=== PATIENT | female | born 1955 | race Caucasian/White ===

== ENCOUNTER 2017-04-18 21:55 | Inpatient (IN) | payer MEDICARE ==
[~2017-04-18] VITALS: Ht 157.4 cm; Wt 93.1 kg
[~2017-04-18 21:55] MED LIST: ALBUTEROL0.09 MG/A2 INH; AMLODIPINE BES2.5 MG PO; ASPIRIN EC325 MG PO; ASPIRIN FOR CHI81 MG PO; ASPIRIN81 M1 PO; BENADRYL25 MG PO; CELEXA20 MG; CITALOPRAM40 MG PO; CLINDAMYCIN HC300 MG PO; CLOPIDOGREL TAB 75M; COZAAR50 M1 PO; CYCLOBENZAPRINE5 M3 PO; EPIPEN 2-PAK1 MG/ML MR; FLAGYL500 MG PO; GABAPENTIN800 MG; HYDR25T PO; HYDROCHLOROTHIA25 MG; HYDROCODONE BIT1 T11 PO; IMDUR SA30 MG PO; ISOSORBIDE MONO30 MG PO; LISINOPRIL20 MG; LOPRESSOR25 MG PO; METFORMIN500 MG; METFORMIN500 MG PO; MYCELEX TROCHE10 MG MM; NITROSTAT0.4 MG; ONE-A-DAY WOMEN1 TAB PO; PHENERGAN25 M1 PO; PLAVIX75 M1 PO; PRAVASTATIN SOD40 MG PO; PROAIR HFA AER; PROAIR HFA0.09 MG/AC INH; SIMVASTATIN TAB 20M PO; SYNTHROID,LEVO25 MCG PO; TAGAMET200 MG PO; TRAMADOL HCL50 MG PO; VALIUM10 MG; VICODIN 5/500 505 MG PO; VICODIN 500 MG-1 TAB PO; VITAMIN D31000 IU PO; ZESTRIL,PRINIVIL5 MG PO; ZITHROMAX Z PA250 MG PO; [UNRECOGNIZED DRUG - REMARK]
[2017-04-18 22:04] VITALS: BP 230/141
[2017-04-18 22:41] LABS: BASO % 0.4 % (0.0-1.0); EOS # 0.3 10*3/uL (0.0-0.4); EOS % 2.7 % (1.0-4.0); HEMATOCRIT 43.2 % (37.0-47.0); HEMOGLOBIN 14.5 g/dl (12.0-16.0); IG # 0.1 10*3/uL (0.0-0.1); LYMPH % 21.4 % (27.0-41.0); MEAN CELL VOLUME 89.3 fl (81.0-99.0); MEAN CORPUSCULAR HGB CONC 33.6 g/dl (33.0-37.0); MEAN PLATELET VOLUME 9.7 fl (9.6-12.3); MONO # 0.7 10*3/uL (0.1-1.0); MONO % 7.7 % (3.0-9.0); NEUT # 6.1 10*3/uL (2.3-7.9); NEUT % 67.3 % (47.0-73.0); PLATELET COUNT AUTOMATED 297 10*3/uL (130-400); RED BLOOD COUNT 4.84 10*6/uL (4.10-5.10); RED CELL DISTRI WIDTH 12.3 % (0-14.5); WHITE BLOOD COUNT 9.1 10*3/uL (4.8-10.8)
[2017-04-18 22:45] VITALS: BP 184/98
[2017-04-18 23:03] LABS: ALBUMIN 3.7 gm/dl (3.1-4.5); ALKALINE PHOSPHATASE 120 U/L (45-117); BILIRUBIN, TOTAL 0.3 mg/dl (0.2-1.0); BUN 14 mg/dl (7-24); CARBON DIOXIDE 25 mmol/L (21-32); CHLORIDE 100 mmol/L (98-107); EST GLOM FILT AFRICAN AMERICAN > 60 ml/min; GLUCOSE 289 mg/dL (65-99); POTASSIUM 3.9 mmol/L (3.5-5.1); SGOT/AST 23 IU/L (3-35); SGPT/ALT 38 U/L (12-78); SODIUM 138 mmol/L (136-145); TOTAL PROTEIN 7.6 gm/dL (6.4-8.2)
[2017-04-18 23:06] LABS: TROPONIN I < 0.015 ng/ml (<0.045)
[2017-04-18 23:38] VITALS: BP 176/84; BP 186/84
[2017-04-19 00:48] VITALS: BP 176/84
[2017-04-19 01:23] VITALS: BP 166/89
[2017-04-19 02:11] VITALS: BP 158/108
== END 2017-04-19 02:37 | disposition left against medical advice (07) | DRG 305 ==
LOC: ED 21:55 → EDHOLD 04-19 00:15
PROVIDERS: Nurse Practitioner Family
DX: I16.1 Hypertensive emergency (principal); E11.9 Type 2 diabetes mellitus without complications; G43.909 Migraine, unspecified, not intractable, without status migrainosus; M19.90 Unspecified osteoarthritis, unspecified site; E78.2 Mixed hyperlipidemia; J45.909 Unspecified asthma, uncomplicated; Z53.21 Procedure and treatment not carried out due to patient leaving prior to being seen by health care provider; I25.10 Atherosclerotic heart disease of native coronary artery without angina pectoris; Z95.5 Presence of coronary angioplasty implant and graft; Z86.73 Personal history of transient ischemic attack (TIA), and cerebral infarction without residual deficits; Z90.49 Acquired absence of other specified parts of digestive tract; Z98.51 Tubal ligation status; Z98.1 Arthrodesis status; Z81.1 Family history of alcohol abuse and dependence; Z82.49 Family history of ischemic heart disease and other diseases of the circulatory system; Z83.3 Family history of diabetes mellitus; Z82.3 Family history of stroke; Z91.048 Other nonmedicinal substance allergy status; Z88.6 Allergy status to analgesic agent; Z88.0 Allergy status to penicillin; Z88.1 Allergy status to other antibiotic agents; Z88.8 Allergy status to other drugs, medicaments and biological substances; Z79.82 Long term (current) use of aspirin; Z79.84 Long term (current) use of oral hypoglycemic drugs; Z79.899 Other long term (current) drug therapy

== ENCOUNTER 2018-07-17 20:36 | Emergency (ER) | payer MEDICARE ==
[~2018-07-17] VITALS: Ht 157.4 cm; Wt 86.2 kg
[~2018-07-17 20:36] MED LIST changes: +ASPIRIN325 M2 PO; -ASPIRIN81 M1 PO; +COREG6.25 MG PO; +FISH OIL 1,0001 EAC6 PO; +GLUCOPHAGE1000 MG PO; +ISOSORBIDE DINI30 MG PO; +LIPITOR80 MG PO; +NATURE'S BLEND500 M1 PO; +VALERIAN ROOT500 MG PO; +VITAMIN B COMP1 EAC1 PO; +VITAMIN D PO; +[UNRECOGNIZED DRUG - OTHER] PO
== END 2018-07-17 22:40 | disposition home or self-care (01) ==
LOC: ED 20:36
DX: S30.0XXA Contusion of lower back and pelvis, initial encounter (principal); J45.909 Unspecified asthma, uncomplicated; I25.10 Atherosclerotic heart disease of native coronary artery without angina pectoris; E11.9 Type 2 diabetes mellitus without complications; E78.5 Hyperlipidemia, unspecified; G43.909 Migraine, unspecified, not intractable, without status migrainosus; Z90.49 Acquired absence of other specified parts of digestive tract; Z88.5 Allergy status to narcotic agent; Z88.0 Allergy status to penicillin; Z88.1 Allergy status to other antibiotic agents; Z88.8 Allergy status to other drugs, medicaments and biological substances; Z79.82 Long term (current) use of aspirin; Z79.84 Long term (current) use of oral hypoglycemic drugs; Z79.899 Other long term (current) drug therapy; Z98.51 Tubal ligation status; W22.8XXA Striking against or struck by other objects, initial encounter; Y93.89 Activity, other specified; Y92.89 Other specified places as the place of occurrence of the external cause; Y99.8 Other external cause status

== ENCOUNTER 2019-05-01 21:19 | Emergency (ER) | payer MEDICARE ==
[~2019-05-01] VITALS: Ht 160 cm; Wt 89.6 kg
--- NOTE | ~2019-05-01 | EKG ---
[place], [place] ELECTROCARDIOGRAM REPORT NAME: DAVID HOUSE UNIT #: [id number] ROOM: DOCTOR: EPIPHANY DRAFT REPORT BIRTHDATE: [birth year] [facility] Test Date: 2019-05-01 Test Time: 21:58:24 Pat Name: DAVID HOUSE Department: Room: Gender: F Crotch Breaker: : 1955 Requested By: KLAUS HANKINS Order Number: [id number] Reading MD: Arslan Lopez MD Measurements Intervals [place] Rate: 75 P: [place]: QRS: 53 QRSD: 96 T: 55 QT: 461 QTc: 515 Interpretive Statements Atrial fibrillation Probable LVH with secondary repol abnrm Prolonged QT interval Electronically Signed On 05-02-2019 8:23:17 PDT by Arslan Lopez MD CM:EKGRPT:ELECTROCARDIOGRAM REPORT [id number] KLAUS BEE DRAFT REPORT KLAUS HANKINS DO
[~2019-05-01 21:19] MED LIST changes: +CEFUROXIME AXE500 MG PO; +TAMIFLU 75MG CA75 MG PO
[2019-05-01 22:12] LABS: BASO % 0.5 % (0.0-1.0); EOS # 0.3 10*3/uL (0.0-0.4); EOS % 3.7 % (1.0-4.0); HEMATOCRIT 44.1 % (37.0-47.0); HEMOGLOBIN 14.1 g/dl (12.0-16.0); LYMPH # 2.1 10*3/uL (1.3-4.4); LYMPH % 27.2 % (27.0-41.0); MEAN CELL VOLUME 91.9 fl (81.0-99.0); MEAN CORPUSCULAR HGB 29.4 pg (27.0-31.0); MEAN PLATELET VOLUME 9.4 fl (9.6-12.3); MONO # 0.8 10*3/uL (0.1-1.0); MONO % 9.7 % (3.0-9.0); NEUT # 4.6 10*3/uL (2.3-7.9); NEUT % 58.6 % (47.0-73.0); PLATELET COUNT AUTOMATED 331 10*3/uL (130-400); RED CELL DISTRI WIDTH 12.5 % (0-14.5); WHITE BLOOD COUNT 7.8 10*3/uL (4.8-10.8)
[2019-05-01 22:28] LABS: ALBUMIN 3.4 gm/dl (3.1-4.5); ALKALINE PHOSPHATASE 127 U/L (45-117); BUN 11 mg/dl (7-24); CHLORIDE 104 mmol/L (98-107); CREATININE 1.25 mg/dL (0.55-1.02); LIPASE 81 U/L (73-393); POTASSIUM 3.9 mmol/L (3.5-5.1); SGOT/AST 26 IU/L (3-35); SGPT/ALT 41 U/L (12-78); SODIUM 137 mmol/L (136-145); TOTAL PROTEIN 7.8 gm/dL (6.4-8.2)
[2019-05-01 22:30] LABS: TROPONIN I < 0.015 ng/ml (<0.045)
[2019-05-01 22:44] LABS: ACT PARTIAL THROMBO TIME 26.4 SECONDS (20.0-32.1); INTERNATIONAL NORM RATIO 0.9 (2.0-3.5)
[2019-05-01 23:06] LABS: BILIRUBIN NEGATIVE (NEGATIVE); BLOOD NEGATIVE (NEGATIVE); CLARITY CLEAR (CLEAR); COLOR YELLOW (YELLOW); GLUCOSE 1+ (NEGATIVE); KETONE NEGATIVE (NEGATIVE); LEUKO ESTERASE NEGATIVE (NEGATIVE); NITRITE NEGATIVE (NEGATIVE); PH 6.5 (5.0-9.0); SPECIFIC GRAVITY <= 1.005 (1.005-1.030); UROBILINOGEN 0.2 E.U./dl (0.2-1.0)
[2019-05-01 23:12] LABS: EPITHELIAL CELLS 30-35
[2019-05-01 23:13] LABS: BACTERIA TRACE; RBC 0-2 rbc/hpf (0-2)
== END 2019-05-01 23:57 | disposition home or self-care (01) ==
LOC: ED 21:19
PROVIDERS: Student in an Organized Health Care Education/Training Program
DX: E11.649 Type 2 diabetes mellitus with hypoglycemia without coma (principal); J45.909 Unspecified asthma, uncomplicated; I25.10 Atherosclerotic heart disease of native coronary artery without angina pectoris; E78.2 Mixed hyperlipidemia; I10 Essential (primary) hypertension; G43.909 Migraine, unspecified, not intractable, without status migrainosus; M19.90 Unspecified osteoarthritis, unspecified site; Z86.73 Personal history of transient ischemic attack (TIA), and cerebral infarction without residual deficits; Z79.82 Long term (current) use of aspirin; Z79.899 Other long term (current) drug therapy; Z88.5 Allergy status to narcotic agent; Z88.6 Allergy status to analgesic agent; Z88.0 Allergy status to penicillin

== ENCOUNTER 2019-08-04 11:57 | Inpatient (IN) | payer MEDICARE ==
[~2019-08-04] VITALS: Ht 177.8 cm; Wt 81.4 kg
[2019-08-04 11:59] VITALS: BP 177/93
[2019-08-04 12:15] LABS: BASO % 0.7 % (0.0-1.0); EOS # 0.2 10*3/uL (0.0-0.4); HEMATOCRIT 42.8 % (37.0-47.0); HEMOGLOBIN 14.1 g/dl (12.0-16.0); LYMPH # 1.4 10*3/uL (1.3-4.4); LYMPH % 23.8 % (27.0-41.0); MEAN CELL VOLUME 90.5 fl (81.0-99.0); MEAN CORPUSCULAR HGB 29.8 pg (27.0-31.0); MEAN CORPUSCULAR HGB CONC 32.9 g/dl (33.0-37.0); MEAN PLATELET VOLUME 9.7 fl (9.6-12.3); MONO # 0.6 10*3/uL (0.1-1.0); MONO % 9.7 % (3.0-9.0); NEUT # 3.7 10*3/uL (2.3-7.9); NEUT % 61.5 % (47.0-73.0); PLATELET COUNT AUTOMATED 295 10*3/uL (130-400); RED BLOOD COUNT 4.73 10*6/uL (4.10-5.10); RED CELL DISTRI WIDTH 12.3 % (0-14.5)
[2019-08-04 12:27] LABS: ACT PARTIAL THROMBO TIME 26.9 SECONDS (20.0-32.1); INTERNATIONAL NORM RATIO 0.9 (2.0-3.5)
[2019-08-04 12:37] VITALS: BP 174/101
[2019-08-04 12:41] LABS: ALBUMIN 3.4 gm/dl (3.1-4.5); ALKALINE PHOSPHATASE 129 U/L (45-117); BUN 13 mg/dl (7-24); CHLORIDE 101 mmol/L (98-107); CREATININE 0.99 mg/dL (0.55-1.02); POTASSIUM 3.7 mmol/L (3.5-5.1); SGOT/AST 11 IU/L (3-35); SGPT/ALT 25 U/L (12-78); SODIUM 134 mmol/L (136-145); TOTAL PROTEIN 7.5 gm/dL (6.4-8.2)
[2019-08-04 12:44] LABS: TROPONIN I < 0.015 ng/ml (<0.045)
[2019-08-04 13:12] VITALS: BP 165/92
--- NOTE | 2019-08-04 13:12 | NUR ---
RESTING IN BED EATING ICE CHIPS. PT TELLS ME MORPHINE EFFECTIVE, "PAIN COMES AND GOES".
[2019-08-04 14:15] VITALS: BP 168/92; BP 174/92
--- NOTE | 2019-08-04 14:15 | NUR ---
A 64, admitted to 5E, under the services of VI Covarrubias DO with a diagnosis of chest pain with high risk for cardiac etiology. Chief complaint is chest pain. Patient arrived via stretcher from ER. Monitor applied. Initial assessment completed. Vital signs taken and recorded. VI COVARRUBIAS DO notified of admission to the unit. Orders received. See assessment for past medical history, medications and allergies. Patient and/or family oriented to unit. [address] visitation policy reviewed. Clothing/patient valuable form completed. LOYDA ALMONTE
--- NOTE | 2019-08-04 14:33 | NUR ---
Called patients home pharmacy for updated med list. Pharmacist to fax.
[2019-08-04 16:00] VITALS: BP 148/94
[2019-08-04] MEDS ORDERED: RANOLAZINE ER500 MG PO (16:10)
--- NOTE | 2019-08-04 17:15 | NUR ---
Dr. Ghotra was medication technician this weekend. Spoke with him regarding consult for chest pain. Reviewed patients history with . Per physician have nurse call Dr. Kurtz at 0600 08-05-19 with consult information.
--- NOTE | 2019-08-04 17:16 | NUR ---
Notified Dr. Amaya of patients updated med rec completion. See new orders.
[2019-08-04 20:00] VITALS: BP 144/82
--- NOTE | 2019-08-04 21:25 | NUR ---
SPOKE TO DR HAGEN REGARDING PT REQUEST FOR IBUPROFEN FOR C/O H/A. T.O. TAKEN FOR 600 MG NOW.
--- NOTE | 2019-08-04 21:35 | NUR ---
ONE TIME DOSE OF IBUPROFEN ADMINISTERED PRESCRIBED FOR PT C/O ANDERSON RATED AN 8/10. WILL CONTINUE TO MONITOR AND REASSESS. NO OTHER COMPLAINTS AT THIS TIME. CALL LIGHT IN REACH.
--- NOTE | 2019-08-04 22:21 | NUR ---
PT STATES SHE RECEIVED SOME RELIEF FROM IBUPROFEN. STATES THAT THE HEADACHE IS FROM THE NITRO SHE RECEIVED EARLIER TODAY. NO COMPLAINTS OF CP AT THIS TIME. WILL CONTINUE TO MONITOR.
[2019-08-05] VITALS: BP 140/82
--- NOTE | 2019-08-05 06:00 | NUR ---
SPOKE WITH DR SUGGS. STATED TO CALL DR ARGUELLO TO SEE IF HE'S ABLE TO DO A STRESS TEST TODAY AND IF NOT TO SCHEDULE WITH HIM TOMORROW AM.
--- NOTE | 2019-08-05 06:10 | NUR ---
DR ARGUELLO IS ABLE TO DO THE STRESS TEST TODAY AT 1030. ORDERS ARE IN. PT WAS MADE AWARE.
[2019-08-05 06:48] LABS: BASO % 0.5 % (0.0-1.0); EOS # 0.3 10*3/uL (0.0-0.4); HEMATOCRIT 41.6 % (37.0-47.0); HEMOGLOBIN 13.8 g/dl (12.0-16.0); LYMPH # 2.3 10*3/uL (1.3-4.4); LYMPH % 36.3 % (27.0-41.0); MEAN CELL VOLUME 89.8 fl (81.0-99.0); MEAN CORPUSCULAR HGB 29.8 pg (27.0-31.0); MEAN CORPUSCULAR HGB CONC 33.2 g/dl (33.0-37.0); MEAN PLATELET VOLUME 9.5 fl (9.6-12.3); MONO # 0.6 10*3/uL (0.1-1.0); MONO % 8.9 % (3.0-9.0); NEUT # 3.1 10*3/uL (2.3-7.9); PLATELET COUNT AUTOMATED 289 10*3/uL (130-400); RED BLOOD COUNT 4.63 10*6/uL (4.10-5.10); RED CELL DISTRI WIDTH 12.5 % (0-14.5); WHITE BLOOD COUNT 6.4 10*3/uL (4.8-10.8)
[2019-08-05 07:19] LABS: ALBUMIN 3.1 gm/dl (3.1-4.5); ALKALINE PHOSPHATASE 101 U/L (45-117); BUN 13 mg/dl (7-24); CHLORIDE 106 mmol/L (98-107); CHOLESTEROL 276 mg/dL (<200); CREATININE 0.82 mg/dL (0.55-1.02); POTASSIUM 3.8 mmol/L (3.5-5.1); SGOT/AST 14 IU/L (3-35); SGPT/ALT 21 U/L (12-78); SODIUM 138 mmol/L (136-145); TOTAL PROTEIN 6.6 gm/dL (6.4-8.2); TRIGLYCERIDES 206 mg/dl (<150); VLDL CHOLESTEROL 41 mg/dL (6-40)
[2019-08-05 07:27] LABS: HDL CHOLESTEROL 36 mg/dl (40-60); LDL CHOLESTEROL 199 mg/dL (9-159); PHOSPHOROUS 3.8 mg/dL (2.5-4.9)
--- NOTE | 2019-08-05 09:13 | NUR ---
1000 AM MEDS WILL BE GIVEN AT A LATER TIME, PT NPO FOR STRESS TEST
--- NOTE | 2019-08-05 10:39 | NUR ---
INFORMED CONSENT SIGNED FOR LEXISCAN STRESS TEST WITH DR. ARGUELLO. RESTING EKG NSR HR 65, BP 164/90. COMPLETED ONE MINUTE OF LEXISCAN PROTOCOL RECEIVING LEXISCAN 0.4MG OVER 10 SECONDS. NO ARRHYTHMIAS NOTED. ST DEPRESSION PRESENT. PT C/O HEADACHE, NAUSEA, AND CHEST TIGHTNESS. DR. ARGUELLO REVIEWED STRIP WITH PT AND INFORMED HER THAT SHE WOULD PROBABLY NEED A HEART CATHERAZATION D/T ABNORMAL TEST. LAST RECOVERY HR 90, BP 160/92. PT CONTINOUS TO HAVE CHEST TIGHTNESS BUT STATES THAT IS NORMAL FOR HER AFTER LEXISCAN. OFFERED TO CONTACT DR. ARGUELLO CONCERNING GETTING AN ORDER FOR AMINOPHYLLINE AND/OR NITRO. PT REFUSED. STATES IT IS THE BEST I'VE EVER FELT WITH STRESS TEST. WAITING NUCLEAR SCANNING IN STABLE CONDITION.
[2019-08-05 12:00] VITALS: BP 158/88
[2019-08-05] MEDS ORDERED: VITAMIN D32000 UNI1 PO (14:20)
[2019-08-05 16:00] VITALS: BP 186/76
--- NOTE | 2019-08-05 16:37 | NUR ---
DULCOLAX GIVEN PER REQUEST FOR C/O CONSTIPATION. WILL MONITOR.
--- NOTE | 2019-08-05 16:46 | NUR ---
Machine Puller And Laster in to talk to patient. Patient states lives at HOME with . There are NO steps in the home. Physician: NONE Pharmacy: [facility] Home health services: NONE Patient's level of ADLs: INDEPENDENT Patient has working utilities: YES DME: [facility] Follow-up physician's appointment after d/c: WILL BE MADE BY HOSPITALIST NURSE DIRECTOR ON DISCHARGE Does patient want to access PORTAL?: NO Discharge plan PT STATES SHE LIVES WITH HER AND IS INDEPENDENT IN HER CARE. STATES SHE SOMETIMES HAS TO USE A WALKER TO GET AROUND. PT ALSO STATES THEY TOLD HER SHE WAS BEING TRANSFERRED TO [place] [facility]ITHER [facility] OR IN THE AM. PT STATES SHE HAS BEEN HAVING TROUBLE GETTING MEDICATIONS. STATES THEY TOLD HERE ABOUT GETTING PERSCRIPTIONS HERE AND FOLLOWING UP WITH [facility]. STATES THAT IS WHAT SHE IS GOING TO DO. WILL CONTINUE TO FOLLOW. WILL HAVE A RIDE HOME IF DISCHARGE FROM HERE.. EKTA QUINTANILLA
[2019-08-05 20:00] VITALS: BP 158/90
--- NOTE | 2019-08-05 22:45 | NUR ---
PT MEDICATED WITH ZOFRAN PER ORDER FOR COMPLAINT OF NAUSEA. PT ALSO MEDICATED WITH MORPHINE PER ORDER FOR COMPLAINT OF 10/10 BACK PAIN. WILL CONTINUE TO MONITOR AND REASSESS.
[2019-08-06] VITALS: BP 130/75
--- NOTE | 2019-08-06 | NUR ---
PER PT, MORPHINE EFFECTIVE FOR PAIN. ZOFRAN EFFECTIVE FOR NAUSEA.
--- NOTE | 2019-08-06 06:21 | NUR ---
CALLED [facility] TO VERIFY PT HEART CATH. [facility] STATED THAT THEY WERE NOT MADE AWARE OF PT FOR HEART CATH THIS MORNING. CALLED AND LEFT MESSAGE WITH DR. SUGGS'S OFFICE FOR CLARIFICATION.
--- NOTE | 2019-08-06 06:38 | NUR ---
DR. SUGGS RETURNED PHONE CALL. STATED THAT PT DID NOT NEED TO HAVE HEART CATH THIS AM. STATES HER STRESS WAS NORMAL AND WOULD BE IN TO SEE PATIENT.
--- NOTE | 2019-08-06 06:40 | NUR ---
DR. MARTINEZ NOTIFIED OF DR. SUGGS STATING HEART CATH NOT NEEDED FOR PT. ORDERED TO RESUME DIET NORMAL PER PT REQUEST.
--- NOTE | 2019-08-06 07:20 | NUR ---
PT CAME TO DESK VERY UPSET AND SHOUTING SHE WANTS TO LEAVE AMA. DR. JOE WAS IN WITH PT PRIOR TO THIS. DR. JOE EXPLAINED TO PT HE WAS GOING TO GET HER TRANSFERRED AND TOLD HER HE CHANGED HIS SCHEDULE TO DO HEART CATH AT NOON TODAY. PT WAS YELLING AND TELLING HIM TO GET OUT OF ROOM. SHE DIDN'T WANT HIM TO DO IT. WE SPOKE WITH PT AND CALMED HER DOWN. AND SHE AGREED TO TALK WITH HOSPITALIST AND PT REQUESTING A NEW MOTEL OPERATOR. DR. SCHAEFER AWARE AND SPOKE WITH PT.
--- NOTE | 2019-08-06 08:15 | NUR ---
DR. IBRAHIM WAS GOING TO READ THE REPORT AND SEE PT. THEN CONNIE FROM [facility] WAS UP TO [facility] TO SEE PT AND SHE IS AGREEING FOR DR. ARGUELLO TO DO HEART CATH AT THIS TIME AGAIN. DR. JOE AWARE PT WANTS SAUNDRA TO DO IT AND NOT HIM. DR. JOE NOTIFIED SAUNDRA.
--- NOTE | 2019-08-06 08:18 | NUR ---
DR. IBRAHIM OFFICE CALLED AND AWARE WE WAS CANCELLING CONSULT. HE WAS ON THE FLOOR AND KNOWS.
--- NOTE | 2019-08-06 09:30 | NUR ---
[facility] CALLED AND WILL LET US KNOW IF THERE IS A BED.
--- NOTE | 2019-08-06 10:59 | NUR ---
PER MITCHELL AT [facility] TOLD THEM NO THEY ARE NOT TAKING ANY TRANSFERS IN.
--- NOTE | 2019-08-06 11:15 | NUR ---
LET BODY CARE MANAGER AND DIRECTOR KNOW AND DR. SCHAEFER IS AWARE.
[2019-08-06 12:00] VITALS: BP 155/76
--- NOTE | 2019-08-06 12:09 | NUR ---
RESTING IN BED. RESP-EASY AND REGULAR. NO C/O AT THIS TIME. CALL LIGHT IN REACH.
--- NOTE | 2019-08-06 12:25 | NUR ---
DR. SCHAEFER MADE AWARE PT AGREES TO GO TO COUNT INCLUDES THE [facility].
--- NOTE | 2019-08-06 14:14 | NUR ---
PT IS FOR POSSIBLE TRANSFER TO ANOTHER FACILITY. WILL CONTINUE TO FOLLOW.
--- NOTE | 2019-08-06 15:02 | NUR ---
SPOKE WITH EDI AT [facility]. GAVE REPORT.
--- NOTE | 2019-08-06 15:03 | NUR ---
Discharge instructions reviewed with patient/AMBULANCE. Patient receptive and verbalizes understanding. Follow-up care arranged. Written instructions given to patient/AMBULANCE. 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 BEATA ELDER
--- NOTE | 2019-08-06 15:08 | NUR ---
CALLED DR. ARGUELLO AWARE PT BEING TRANSFERRED TO [facility]. HE WANTS HER TO KNOW HE HAS BEEN TRYING TO GET HER TO [facility] AND THAT HE SPOKE WITH ADMINISTRATION. MADE PT AWARE.
--- NOTE | 2019-08-06 15:43 | NUR ---
PT ESCORTED VIA [place] FOR DISCHARGE TO [facility], PACKET GIVEN TO LOCKSTITCH BACK MAKER.
== END 2019-08-06 15:43 | disposition short-term general hospital (02) | DRG 281 ==
LOC: ED 11:57 → EDHOLD 12:53 → 5E 12:53
PROVIDERS: Emergency Medicine; Family Medicine; ADMIT Family Medicine
PROC: 3E073KZ Introduction of Other Diagnostic Substance into Coronary Artery, Percutaneous Approach (ICD-10-PCS; principal; 2019-08-05)
PROC: 4A02XM4 Measurement of Cardiac Total Activity, External Approach (ICD-10-PCS; principal; 2019-08-05)
DX: I21.A1 Myocardial infarction type 2 (principal); E87.1 Hypo-osmolality and hyponatremia; I16.0 Hypertensive urgency; I25.10 Atherosclerotic heart disease of native coronary artery without angina pectoris; J45.909 Unspecified asthma, uncomplicated; E78.2 Mixed hyperlipidemia; G43.909 Migraine, unspecified, not intractable, without status migrainosus; I10 Essential (primary) hypertension; E11.65 Type 2 diabetes mellitus with hyperglycemia; R74.8 Abnormal levels of other serum enzymes; E55.9 Vitamin D deficiency, unspecified; E66.01 Morbid (severe) obesity due to excess calories; M19.90 Unspecified osteoarthritis, unspecified site; Z86.73 Personal history of transient ischemic attack (TIA), and cerebral infarction without residual deficits; Z90.49 Acquired absence of other specified parts of digestive tract; Z98.51 Tubal ligation status; Z82.49 Family history of ischemic heart disease and other diseases of the circulatory system; Z83.3 Family history of diabetes mellitus; Z95.5 Presence of coronary angioplasty implant and graft; Z88.8 Allergy status to other drugs, medicaments and biological substances; Z91.048 Other nonmedicinal substance allergy status; Z79.899 Other long term (current) drug therapy; Z79.82 Long term (current) use of aspirin; Z79.84 Long term (current) use of oral hypoglycemic drugs; Z81.1 Family history of alcohol abuse and dependence; Z82.3 Family history of stroke; Z98.1 Arthrodesis status; Z68.25 Body mass index [BMI] 25.0-25.9, adult

== ENCOUNTER → 2020-01-02 | Outpatient (CLI) | payer MEDICARE ==
[~2020-01-02] MED LIST changes: +RANOLAZINE ER500 MG PO; +VITAMIN D32000 UNI1 PO
== END | disposition home or self-care (01) ==
LOC: RESCLI 00:59
DX: I10 Essential (primary) hypertension (principal); E11.9 Type 2 diabetes mellitus without complications; E78.5 Hyperlipidemia, unspecified; F32.9 Major depressive disorder, single episode, unspecified; I25.10 Atherosclerotic heart disease of native coronary artery without angina pectoris; I67.9 Cerebrovascular disease, unspecified; L40.9 Psoriasis, unspecified; R93.89 Abnormal findings on diagnostic imaging of other specified body structures; Z79.899 Other long term (current) drug therapy; Z90.49 Acquired absence of other specified parts of digestive tract; Z88.0 Allergy status to penicillin; Z88.8 Allergy status to other drugs, medicaments and biological substances

== ENCOUNTER → 2020-01-06 | Outpatient (CLI) | payer MEDICARE ==
[2020-01-06 08:39] LABS: BASO # 0.1 10*3/uL (0.0-0.1); BASO % 0.6 % (0.0-1.0); EOS # 0.3 10*3/uL (0.0-0.4); EOS % 3.8 % (1.0-4.0); HEMATOCRIT 50.1 % (37.0-47.0); HEMOGLOBIN 16.5 g/dl (12.0-16.0); LYMPH # 2.4 10*3/uL (1.3-4.4); MEAN CELL VOLUME 86.8 fl (81.0-99.0); MEAN CORPUSCULAR HGB 28.6 pg (27.0-31.0); MEAN CORPUSCULAR HGB CONC 32.9 g/dl (33.0-37.0); MEAN PLATELET VOLUME 9.2 fl (9.6-12.3); MONO # 0.7 10*3/uL (0.1-1.0); MONO % 8.4 % (3.0-9.0); NEUT # 4.4 10*3/uL (2.3-7.9); NEUT % 55.8 % (47.0-73.0); PLATELET COUNT AUTOMATED 394 10*3/uL (130-400); RED BLOOD COUNT 5.77 10*6/uL (4.10-5.10); RED CELL DISTRI WIDTH 12.2 % (0-14.5); WHITE BLOOD COUNT 7.8 10*3/uL (4.8-10.8)
[2020-01-06 09:13] LABS: ALBUMIN 3.9 gm/dl (3.1-4.5); POTASSIUM 3.9 mmol/L (3.5-5.1)
[2020-01-06 09:16] LABS: CREATININE 1.22 mg/dL (0.55-1.02); TOTAL PROTEIN 8.7 gm/dL (6.4-8.2)
== END | disposition home or self-care (01) ==
LOC: LAB 08:19
PROVIDERS: Internal Medicine
DX: E11.9 Type 2 diabetes mellitus without complications (principal)

== ENCOUNTER → 2020-01-09 | Outpatient (CLI) | payer MEDICARE ==
[2020-01-09 13:36] LABS: ALBUMIN 3.8 gm/dl (3.1-4.5); ALKALINE PHOSPHATASE 122 U/L (45-117); BUN 14 mg/dl (7-24); CHLORIDE 98 mmol/L (98-107); CREATININE 1.02 mg/dL (0.55-1.02); POTASSIUM 3.7 mmol/L (3.5-5.1); SGOT/AST 15 IU/L (3-35); SGPT/ALT 29 U/L (12-78); SODIUM 134 mmol/L (136-145); TOTAL PROTEIN 8.1 gm/dL (6.4-8.2)
[2020-01-09 13:37] LABS: BACTERIA 2+; BILIRUBIN NEGATIVE (NEGATIVE); BLOOD NEGATIVE (NEGATIVE); CLARITY SL CLOUDY (CLEAR); COLOR YELLOW (YELLOW); EPITHELIAL CELLS 20-25; GLUCOSE 1+ (NEGATIVE); KETONE NEGATIVE (NEGATIVE); LEUKO ESTERASE 1+ (NEGATIVE); MUCOUS 1+; NITRITE NEGATIVE (NEGATIVE); SPECIFIC GRAVITY 1.015 (1.005-1.030); UROBILINOGEN 0.2 E.U./dl (0.2-1.0)
== END | disposition home or self-care (01) ==
LOC: RESCLI 00:36
PROVIDERS: Internal Medicine
DX: R55 Syncope and collapse (principal); R42 Dizziness and giddiness; E11.9 Type 2 diabetes mellitus without complications; F32.9 Major depressive disorder, single episode, unspecified; I25.10 Atherosclerotic heart disease of native coronary artery without angina pectoris; E78.5 Hyperlipidemia, unspecified

== ENCOUNTER → 2020-04-08 | Outpatient (CLI) | payer MEDICARE ==
[~2020-04-08] MED LIST changes: +BIOTIN10000 MC1 PO; +LOSARTAN-HCTZ1 EAC1 PO; +METFORMIN HCL1000 M1 PO; +SIMVASTATIN40 MG PO
--- NOTE | 2020-04-08 09:15 | NUR ---
INFORMED CONSENT OBTAINED FOR LEXISCAN NUCLEAR STRESS TEST WITH DR. GOLDSTEIN. RESTING EKG NSR WITH A RESTING HR OF 79 WITH BP OF 124/72. LUNGS CLEAR WITH SPO2 OF 99% ON ROOM AIR. PT COMPLETED A 1:00 LEXISCAN PROTOCOL RECEIVING LEXISCAN 0.4 MG IV OVER 10 SECONDS. DID C/O ABDOMINAL "CRAMPING, NAUSEA, DIZZINESS AND CHEST TIGHTNESS" THAT WAS RELIEVED IN RECOVERY. HAD ST DEPRESSION IN LEADS II,III,AVF AND V5-V6. HAD A PEAK HR OF 104 WITH BP OF 108/44. LAST RECOVERY HR OF 95 WITH BP OF 120/50. AWAITING SCANNING IN STABLE CONDITION.
== END | disposition home or self-care (01) ==
LOC: CARD 00:05
DX: I25.119 Atherosclerotic heart disease of native coronary artery with unspecified angina pectoris (principal); R07.9 Chest pain, unspecified; R73.03 Prediabetes; R53.81 Other malaise

== ENCOUNTER → 2020-05-04 | Outpatient (CLI) | payer MEDICARE ==
[2020-05-04 16:46] LABS: VITAMIN D, 25-HYDROXY 13.3 ng/mL (30-100)
[2020-05-05 11:18] LABS: CREATININE 1.05 mg/dL (0.55-1.02)
== END | disposition home or self-care (01) ==
LOC: RESCLI 00:47
PROVIDERS: Internal Medicine
DX: E11.9 Type 2 diabetes mellitus without complications (principal); F32.9 Major depressive disorder, single episode, unspecified; I25.119 Atherosclerotic heart disease of native coronary artery with unspecified angina pectoris; E78.5 Hyperlipidemia, unspecified; G62.9 Polyneuropathy, unspecified; J44.9 Chronic obstructive pulmonary disease, unspecified; E55.9 Vitamin D deficiency, unspecified; Z90.49 Acquired absence of other specified parts of digestive tract; Z95.828 Presence of other vascular implants and grafts; Z98.51 Tubal ligation status; Z98.890 Other specified postprocedural states; Z79.84 Long term (current) use of oral hypoglycemic drugs; Z79.899 Other long term (current) drug therapy; Z88.8 Allergy status to other drugs, medicaments and biological substances

== ENCOUNTER → 2020-09-15 | Outpatient (CLI) | payer MEDICARE ==
[2020-09-15 15:42] LABS: BASO % 0.5 % (0.0-1.0); EOS # 0.3 10*3/uL (0.0-0.4); EOS % 3.3 % (1.0-4.0); HEMATOCRIT 40.9 % (37.0-47.0); LYMPH # 1.4 10*3/uL (1.3-4.4); LYMPH % 17.8 % (27.0-41.0); MEAN CELL VOLUME 87.6 fl (81.0-99.0); MEAN CORPUSCULAR HGB 29.3 pg (27.0-31.0); MEAN CORPUSCULAR HGB CONC 33.5 g/dl (33.0-37.0); MEAN PLATELET VOLUME 9.9 fl (9.6-12.3); MONO # 0.6 10*3/uL (0.1-1.0); MONO % 7.7 % (3.0-9.0); NEUT # 5.7 10*3/uL (2.3-7.9); NEUT % 70.3 % (47.0-73.0); PLATELET COUNT AUTOMATED 313 10*3/uL (130-400); RED BLOOD COUNT 4.67 10*6/uL (4.10-5.10); RED CELL DISTRI WIDTH 12.3 % (0-14.5); WHITE BLOOD COUNT 8.1 10*3/uL (4.8-10.8)
[2020-09-15 16:13] LABS: ALBUMIN 3.6 gm/dl (3.1-4.5); BUN 15 mg/dl (7-24); CHLORIDE 99 mmol/L (98-107); CHOLESTEROL 200 mg/dL (<200); CREATININE 1.07 mg/dL (0.55-1.02); POTASSIUM 4.1 mmol/L (3.5-5.1); SGOT/AST 10 IU/L (3-35); SGPT/ALT 19 U/L (12-78); SODIUM 138 mmol/L (136-145); TRIGLYCERIDES 184 mg/dl (<150); VLDL CHOLESTEROL 37 mg/dL (6-40)
[2020-09-15 16:19] LABS: ALKALINE PHOSPHATASE 102 U/L (45-117); FREE T4 0.98 ng/dl (0.76-1.46); HDL CHOLESTEROL 46 mg/dl (40-60); LDL CHOLESTEROL 117 mg/dL (9-159)
[2020-09-16 11:11] LABS: CREATININE,URINE 165.4 mg/dL (Not Estab.)
== END | disposition home or self-care (01) ==
LOC: RESCLI 02:25
PROVIDERS: Internal Medicine; ATTEND Internal Medicine
DX: R41.89 Other symptoms and signs involving cognitive functions and awareness (principal); E11.9 Type 2 diabetes mellitus without complications; E78.5 Hyperlipidemia, unspecified; I25.10 Atherosclerotic heart disease of native coronary artery without angina pectoris

== ENCOUNTER 2020-10-02 11:10 | Emergency (ER) | payer MEDICARE ==
[~2020-10-02] VITALS: Ht 157.4 cm; Wt 86.2 kg
== END 2020-10-02 13:43 | disposition home or self-care (01) ==
LOC: ED 11:10
DX: S46.911A Strain of unspecified muscle, fascia and tendon at shoulder and upper arm level, right arm, initial encounter (principal); Z88.8 Allergy status to other drugs, medicaments and biological substances; Z79.82 Long term (current) use of aspirin; Z79.899 Other long term (current) drug therapy; X58.XXXA Exposure to other specified factors, initial encounter; Y93.89 Activity, other specified; Y92.89 Other specified places as the place of occurrence of the external cause; Y99.8 Other external cause status

== ENCOUNTER → 2020-12-01 | Outpatient (CLI) | payer MEDICARE ==
[~2020-12-01] MED LIST changes: +LEVETIRACETAM750 MG PO; +MECLIZINE HCL25 M2 PO
== END | disposition home or self-care (01) ==
LOC: RESCLI 00:50
PROVIDERS: ATTEND Emergency Medicine
DX: J44.9 Chronic obstructive pulmonary disease, unspecified (principal); F32.9 Major depressive disorder, single episode, unspecified; G62.9 Polyneuropathy, unspecified; E78.5 Hyperlipidemia, unspecified; I25.10 Atherosclerotic heart disease of native coronary artery without angina pectoris; E11.9 Type 2 diabetes mellitus without complications; I20.8 Other forms of angina pectoris; R41.89 Other symptoms and signs involving cognitive functions and awareness; N39.46 Mixed incontinence; B37.3 Candidiasis of vulva and vagina; E55.9 Vitamin D deficiency, unspecified; G89.29 Other chronic pain; M25.511 Pain in right shoulder; Z79.84 Long term (current) use of oral hypoglycemic drugs; Z79.899 Other long term (current) drug therapy

== ENCOUNTER → 2020-12-25 | Outpatient (CLI) | payer MEDICARE | END | disposition home or self-care (01) | LOC: MRI 10:35 | PROVIDERS: ATTEND Internal Medicine | DX: M25.511 Pain in right shoulder (principal) ==

== ENCOUNTER 2021-01-19 15:52 | Emergency (ER) | payer MEDICARE ==
[~2021-01-19] VITALS: Ht 157.4 cm; Wt 83.9 kg
[~2021-01-19 15:52] MED LIST changes: -LEVETIRACETAM750 MG PO; -MECLIZINE HCL25 M2 PO
[2021-01-19 16:33] LABS: BASO % 0.4 % (0.0-1.0); EOS # 0.3 10*3/uL (0.0-0.4); EOS % 3.7 % (1.0-4.0); HEMATOCRIT 43.7 % (37.0-47.0); LYMPH # 2.3 10*3/uL (1.3-4.4); LYMPH % 26.2 % (27.0-41.0); MEAN CELL VOLUME 88.6 fl (81.0-99.0); MEAN CORPUSCULAR HGB 29.4 pg (27.0-31.0); MEAN CORPUSCULAR HGB CONC 33.2 g/dl (33.0-37.0); MEAN PLATELET VOLUME 9.4 fl (9.6-12.3); MONO # 0.8 10*3/uL (0.1-1.0); MONO % 9.4 % (3.0-9.0); NEUT # 5.3 10*3/uL (2.3-7.9); NEUT % 59.7 % (47.0-73.0); PLATELET COUNT AUTOMATED 308 10*3/uL (130-400); RED BLOOD COUNT 4.93 10*6/uL (4.10-5.10); WHITE BLOOD COUNT 8.9 10*3/uL (4.8-10.8)
[2021-01-19 16:47] LABS: ACT PARTIAL THROMBO TIME 27.9 SECONDS (20.0-32.1); INTERNATIONAL NORM RATIO 0.9 (2.0-3.5)
[2021-01-19 16:55] LABS: ALBUMIN 3.4 gm/dl (3.1-4.5); ALKALINE PHOSPHATASE 105 U/L (45-117); BUN 22 mg/dl (7-24); CHLORIDE 100 mmol/L (98-107); LIPASE 92 U/L (73-393); POTASSIUM 3.6 mmol/L (3.5-5.1); SGOT/AST 18 IU/L (3-35); SGPT/ALT 33 U/L (12-78); SODIUM 134 mmol/L (136-145); TOTAL PROTEIN 7.7 gm/dL (6.4-8.2)
[2021-01-19 16:56] LABS: TROPONIN I < 0.015 ng/ml (<0.045)
[2021-01-19] MEDS ORDERED: MECLIZINE HCL25 M2 PO ×2 (20:34)
== END 2021-01-19 20:45 | disposition home or self-care (01) ==
LOC: ED 15:52
PROVIDERS: Emergency Medicine
DX: E86.0 Dehydration (principal); R42 Dizziness and giddiness; Z88.8 Allergy status to other drugs, medicaments and biological substances; Z88.0 Allergy status to penicillin; Z88.1 Allergy status to other antibiotic agents; Z79.82 Long term (current) use of aspirin; Z79.84 Long term (current) use of oral hypoglycemic drugs; Z90.49 Acquired absence of other specified parts of digestive tract; Z98.890 Other specified postprocedural states; Z98.51 Tubal ligation status; Z95.818 Presence of other cardiac implants and grafts

== ENCOUNTER 2021-02-20 15:55 | Inpatient (IN) | payer MEDICARE ==
[~2021-02-20] VITALS: Ht 152.4 cm; Wt 83.5 kg
[~2021-02-20 15:55] MED LIST changes: +MECLIZINE HCL25 M2 PO
[2021-02-20 15:56] VITALS: BP 142/64
[2021-02-20 16:48] LABS: BASO % 0.5 % (0.0-1.0); EOS # 0.3 10*3/uL (0.0-0.4); EOS % 3.9 % (1.0-4.0); HEMATOCRIT 42.9 % (37.0-47.0); LYMPH # 1.7 10*3/uL (1.3-4.4); LYMPH % 21.7 % (27.0-41.0); MEAN CELL VOLUME 87.7 fl (81.0-99.0); MEAN CORPUSCULAR HGB 28.8 pg (27.0-31.0); MEAN CORPUSCULAR HGB CONC 32.9 g/dl (33.0-37.0); MEAN PLATELET VOLUME 9.7 fl (9.6-12.3); MONO # 0.7 10*3/uL (0.1-1.0); MONO % 9.1 % (3.0-9.0); NEUT # 5.2 10*3/uL (2.3-7.9); NEUT % 64.3 % (47.0-73.0); PLATELET COUNT AUTOMATED 304 10*3/uL (130-400); RED BLOOD COUNT 4.89 10*6/uL (4.10-5.10); RED CELL DISTRI WIDTH 12.3 % (0-14.5)
[2021-02-20 16:55] LABS: BILIRUBIN Negative (Negative); BLOOD Negative (Negative); CLARITY Turbid (Clear); COLOR Yellow (Yellow); GLUCOSE 3+ (Negative); KETONE Trace (Negative); LEUKO ESTERASE 1+ (Negative); NITRITE Negative (Negative); PH 6.5 (4.5-8.0); SPECIFIC GRAVITY >= 1.030 (1.001-1.030); UROBILINOGEN 0.2 E.U./dl (0.0-1.0)
[2021-02-20 16:59] LABS: ACT PARTIAL THROMBO TIME 25.7 SECONDS (20.0-32.1)
[2021-02-20 17:04] LABS: ALBUMIN 3.3 gm/dl (3.1-4.5); ALKALINE PHOSPHATASE 117 U/L (45-117); BUN 18 mg/dl (7-24); CHLORIDE 98 mmol/L (98-107); CREATININE 1.19 mg/dL (0.55-1.02); POTASSIUM 3.8 mmol/L (3.5-5.1); SGOT/AST 8 IU/L (3-35); SGPT/ALT 25 U/L (12-78); SODIUM 134 mmol/L (136-145)
[2021-02-20 17:05] LABS: TROPONIN I < 0.015 ng/ml (<0.045)
[2021-02-20 17:07] LABS: BACTERIA 2+; EPITHELIAL CELLS TNTC; WBC TNTC wbc/hpf (0-5)
[2021-02-20 17:40] VITALS: BP 129/60
[2021-02-20 20:00] VITALS: BP 124/65
[2021-02-21] VITALS: BP 121/64
[2021-02-21 06:07] LABS: ALBUMIN 2.8 gm/dl (3.1-4.5); BUN 15 mg/dl (7-24); CHLORIDE 108 mmol/L (98-107); CREATININE 0.95 mg/dL (0.55-1.02); FREE T4 0.84 ng/dl (0.76-1.46); POTASSIUM 3.5 mmol/L (3.5-5.1); SGOT/AST 12 IU/L (3-35); SGPT/ALT 23 U/L (12-78); SODIUM 138 mmol/L (136-145); TOTAL PROTEIN 6.4 gm/dL (6.4-8.2)
[2021-02-21 06:08] LABS: BASO % 0.2 % (0.0-1.0); EOS # 0.4 10*3/uL (0.0-0.4); EOS % 4.8 % (1.0-4.0); HEMATOCRIT 38.6 % (37.0-47.0); LYMPH # 2.8 10*3/uL (1.3-4.4); LYMPH % 31.7 % (27.0-41.0); MEAN CELL VOLUME 89.1 fl (81.0-99.0); MEAN CORPUSCULAR HGB 29.1 pg (27.0-31.0); MEAN CORPUSCULAR HGB CONC 32.6 g/dl (33.0-37.0); MEAN PLATELET VOLUME 9.9 fl (9.6-12.3); MONO # 0.7 10*3/uL (0.1-1.0); MONO % 8.1 % (3.0-9.0); NEUT # 4.8 10*3/uL (2.3-7.9); NEUT % 54.7 % (47.0-73.0); PLATELET COUNT AUTOMATED 288 10*3/uL (130-400); RED BLOOD COUNT 4.33 10*6/uL (4.10-5.10); RED CELL DISTRI WIDTH 12.6 % (0-14.5); WHITE BLOOD COUNT 8.7 10*3/uL (4.8-10.8)
[2021-02-21 06:12] LABS: ALKALINE PHOSPHATASE 86 U/L (45-117)
[2021-02-21 07:15] LABS: VITAMIN D, 25-HYDROXY 48.8 ng/mL (30-100)
[2021-02-21 08:00] VITALS: BP 124/80
[2021-02-21 12:00] VITALS: BP 130/63
[2021-02-21 16:00] VITALS: BP 123/86
[2021-02-21 20:00] VITALS: BP 149/80
[2021-02-22] VITALS: BP 142/70
[2021-02-22 08:00] VITALS: BP 140/68
[2021-02-22 12:00] VITALS: BP 130/63
[2021-02-22 16:00] VITALS: BP 141/79
[2021-02-22 20:00] VITALS: BP 134/61
[2021-02-23] VITALS (7 sets, daily range): BP systolic 127–162; BP diastolic 51–86
[2021-02-23 06:55] LABS: CHOLESTEROL 192 mg/dL (<200); TRIGLYCERIDES 174 mg/dl (<150); VLDL CHOLESTEROL 35 mg/dL (6-40)
[2021-02-23 06:56] LABS: HDL CHOLESTEROL 44 mg/dl (40-60); LDL CHOLESTEROL 113 mg/dL (9-159)
[2021-02-24 00:55] VITALS: BP 148/78
[2021-02-24 05:30] VITALS: BP 155/77
[2021-02-24 07:30] VITALS: BP 152/80
[2021-02-24] MEDS ORDERED: LEVETIRACETAM750 MG PO (13:05)
== END 2021-02-24 13:20 | disposition home health service (06) | DRG 65 ==
LOC: ED 15:55 → 5E 17:11 → EDHOLD 17:11 → 5E 17:24
PROVIDERS: Emergency Medicine; Hospitalist; Internal Medicine; ADMIT Student in an Organized Health Care Education/Training Program; ATTEND Student in an Organized Health Care Education/Training Program
DX: I63.9 Cerebral infarction, unspecified (principal); E87.2 Acidosis; E87.1 Hypo-osmolality and hyponatremia; N39.0 Urinary tract infection, site not specified; R56.9 Unspecified convulsions; N18.31 Chronic kidney disease, stage 3a; J45.909 Unspecified asthma, uncomplicated; I25.10 Atherosclerotic heart disease of native coronary artery without angina pectoris; G43.909 Migraine, unspecified, not intractable, without status migrainosus; B95.4 Other streptococcus as the cause of diseases classified elsewhere; E66.9 Obesity, unspecified; M19.90 Unspecified osteoarthritis, unspecified site; E11.65 Type 2 diabetes mellitus with hyperglycemia; I12.9 Hypertensive chronic kidney disease with stage 1 through stage 4 chronic kidney disease, or unspecified chronic kidney disease; E11.22 Type 2 diabetes mellitus with diabetic chronic kidney disease; Z90.49 Acquired absence of other specified parts of digestive tract; Z95.5 Presence of coronary angioplasty implant and graft; Z82.49 Family history of ischemic heart disease and other diseases of the circulatory system; Z88.0 Allergy status to penicillin; Z88.1 Allergy status to other antibiotic agents; Z88.6 Allergy status to analgesic agent; Z88.8 Allergy status to other drugs, medicaments and biological substances; Z68.35 Body mass index [BMI] 35.0-35.9, adult

== ENCOUNTER 2021-03-15 14:02 | Emergency (ER) | payer MEDICARE ==
[~2021-03-15] VITALS: Ht 157.4 cm; Wt 90.7 kg
[~2021-03-15 14:02] MED LIST changes: +LEVETIRACETAM750 MG PO
[2021-03-15 14:08] VITALS: BP 151/70
[2021-03-15 14:50] LABS: BASO % 0.5 % (0.0-1.0); EOS # 0.4 10*3/uL (0.0-0.4); EOS % 4.7 % (1.0-4.0); HEMATOCRIT 40.3 % (37.0-47.0); LYMPH # 2.6 10*3/uL (1.3-4.4); LYMPH % 31.4 % (27.0-41.0); MEAN CORPUSCULAR HGB 28.7 pg (27.0-31.0); MEAN PLATELET VOLUME 9.6 fl (9.6-12.3); MONO # 0.6 10*3/uL (0.1-1.0); MONO % 7.6 % (3.0-9.0); NEUT # 4.6 10*3/uL (2.3-7.9); NEUT % 55.3 % (47.0-73.0); PLATELET COUNT AUTOMATED 308 10*3/uL (130-400); RED BLOOD COUNT 4.63 10*6/uL (4.10-5.10); RED CELL DISTRI WIDTH 12.6 % (0-14.5); WHITE BLOOD COUNT 8.3 10*3/uL (4.8-10.8)
[2021-03-15 15:08] LABS: ALBUMIN 3.4 gm/dl (3.1-4.5); ALKALINE PHOSPHATASE 120 U/L (45-117); BUN 19 mg/dl (7-24); CHLORIDE 100 mmol/L (98-107); CREATININE 1.28 mg/dL (0.55-1.02); LIPASE 89 U/L (73-393); POTASSIUM 3.6 mmol/L (3.5-5.1); SGOT/AST 14 IU/L (3-35); SGPT/ALT 30 U/L (12-78); SODIUM 132 mmol/L (136-145); TOTAL PROTEIN 7.5 gm/dL (6.4-8.2)
[2021-03-15 15:18] LABS: TROPONIN I < 0.015 ng/ml (<0.045)
[2021-03-15 16:06] LABS: BILIRUBIN Negative (Negative); BLOOD 1+ (Negative); CLARITY Turbid (Clear); COLOR Yellow (Yellow); GLUCOSE 3+ (Negative); KETONE Trace (Negative); LEUKO ESTERASE 2+ (Negative); NITRITE Negative (Negative); PH 5.5 (4.5-8.0); SPECIFIC GRAVITY >= 1.030 (1.001-1.030); UROBILINOGEN 0.2 E.U./dl (0.0-1.0)
[2021-03-15 16:12] LABS: EPITHELIAL CELLS TNTC; WBC 51-100 wbc/hpf (0-5)
== END 2021-03-15 20:01 | disposition admitted as inpatient to this hospital (09) ==
LOC: ED 14:02 → EDHOLD 18:47 → ED 18:47
PROVIDERS: Physician Assistant
DX: N39.0 Urinary tract infection, site not specified (principal); R42 Dizziness and giddiness; R73.9 Hyperglycemia, unspecified; Z88.6 Allergy status to analgesic agent; Z88.8 Allergy status to other drugs, medicaments and biological substances; Z79.899 Other long term (current) drug therapy; Z79.84 Long term (current) use of oral hypoglycemic drugs; Z79.82 Long term (current) use of aspirin; Z90.49 Acquired absence of other specified parts of digestive tract; Z98.51 Tubal ligation status; Z98.890 Other specified postprocedural states; Z87.891 Personal history of nicotine dependence

== ENCOUNTER → 2021-03-18 | Outpatient (CLI) | payer MEDICARE ==
[~2021-03-18] MED LIST changes: +CELEXA20 MG PO; +CYMBALTA30 MG PO; +GABAPENTIN100 M2 PO; +Meclizine25 MG PO; +PROAIR HFA8.5 GM INH
== END | disposition home or self-care (01) ==
LOC: RESCLI 01:59
PROVIDERS: ATTEND Internal Medicine
DX: E11.9 Type 2 diabetes mellitus without complications (principal); G40.909 Epilepsy, unspecified, not intractable, without status epilepticus; F32.9 Major depressive disorder, single episode, unspecified; E78.5 Hyperlipidemia, unspecified; I25.10 Atherosclerotic heart disease of native coronary artery without angina pectoris; I20.8 Other forms of angina pectoris; Z79.899 Other long term (current) drug therapy

== ENCOUNTER 2021-03-19 06:53 | Inpatient (IN) | payer MEDICARE ==
[2021-03-19] VITALS (9 sets, daily range): BP systolic 123–179; BP diastolic 69–108
[~2021-03-19] VITALS: Ht 157.4 cm; Wt 81.7 kg
[~2021-03-19 06:53] MED LIST changes: -CELEXA20 MG PO; -CYMBALTA30 MG PO; -GABAPENTIN100 M2 PO; -Meclizine25 MG PO; -PROAIR HFA8.5 GM INH
[2021-03-19 08:18] LABS: BASO % 0.3 % (0.0-1.0); EOS # 0.1 10*3/uL (0.0-0.4); EOS % 1.5 % (1.0-4.0); HEMATOCRIT 41.5 % (37.0-47.0); LYMPH # 1.2 10*3/uL (1.3-4.4); MEAN CELL VOLUME 86.5 fl (81.0-99.0); MEAN CORPUSCULAR HGB CONC 33.5 g/dl (33.0-37.0); MEAN PLATELET VOLUME 9.3 fl (9.6-12.3); MONO # 0.6 10*3/uL (0.1-1.0); MONO % 6.9 % (3.0-9.0); NEUT # 7.2 10*3/uL (2.3-7.9); PLATELET COUNT AUTOMATED 319 10*3/uL (130-400); RED CELL DISTRI WIDTH 12.8 % (0-14.5); WHITE BLOOD COUNT 9.2 10*3/uL (4.8-10.8)
[2021-03-19 08:32] LABS: ACT PARTIAL THROMBO TIME 25.9 SECONDS (20.0-32.1)
[2021-03-19 08:35] LABS: ALBUMIN 3.3 gm/dl (3.1-4.5); BUN 13 mg/dl (7-24); CHLORIDE 106 mmol/L (98-107); CREATININE 1.02 mg/dL (0.55-1.02); LIPASE 53 U/L (73-393); POTASSIUM 3.7 mmol/L (3.5-5.1); SGOT/AST 14 IU/L (3-35); SGPT/ALT 23 U/L (12-78); SODIUM 137 mmol/L (136-145)
[2021-03-19 08:37] LABS: ALKALINE PHOSPHATASE 97 U/L (45-117); TOTAL PROTEIN 7.7 gm/dL (6.4-8.2); TROPONIN I < 0.015 ng/ml (<0.045)
[2021-03-19] MEDS ORDERED: Meclizine25 MG PO (14:02)
[2021-03-19 14:20] LABS: BILIRUBIN Negative (Negative); BLOOD Negative (Negative); CLARITY Clear (Clear); COLOR Yellow (Yellow); GLUCOSE 3+ (Negative); KETONE 3+ (Negative); LEUKO ESTERASE 1+ (Negative); NITRITE Negative (Negative); PH 7.5 (4.5-8.0); SPECIFIC GRAVITY 1.015 (1.001-1.030); UROBILINOGEN 0.2 E.U./dl (0.0-1.0)
[2021-03-19 14:39] LABS: EPITHELIAL CELLS 21-30
[2021-03-19 14:40] LABS: BACTERIA TRACE; RBC 0-2 rbc/hpf (0-2); YEAST TRACE
[2021-03-19] MEDS ORDERED: GABAPENTIN100 M2 PO (14:46)
[2021-03-19] MEDS ORDERED: CYMBALTA30 MG PO (14:59)
[2021-03-19] MEDS ORDERED: CELEXA20 MG PO (15:01)
[2021-03-19] MEDS ORDERED: PROAIR HFA8.5 GM INH (15:03)
[2021-03-20] VITALS: BP 100/50
[2021-03-20 06:08] LABS: BUN 11 mg/dl (7-24); CHLORIDE 106 mmol/L (98-107); CREATININE 1.05 mg/dL (0.55-1.02); SODIUM 138 mmol/L (136-145)
[2021-03-20 06:22] LABS: BASO % 0.5 % (0.0-1.0); EOS # 0.3 10*3/uL (0.0-0.4); EOS % 3.4 % (1.0-4.0); LYMPH # 2.2 10*3/uL (1.3-4.4); LYMPH % 27.6 % (27.0-41.0); MEAN CELL VOLUME 88.9 fl (81.0-99.0); MEAN CORPUSCULAR HGB 28.4 pg (27.0-31.0); MEAN PLATELET VOLUME 9.7 fl (9.6-12.3); MONO # 0.7 10*3/uL (0.1-1.0); MONO % 8.7 % (3.0-9.0); NEUT # 4.7 10*3/uL (2.3-7.9); NEUT % 59.4 % (47.0-73.0); PLATELET COUNT AUTOMATED 328 10*3/uL (130-400); RED CELL DISTRI WIDTH 13.4 % (0-14.5); WHITE BLOOD COUNT 7.9 10*3/uL (4.8-10.8)
[2021-03-20 08:00] VITALS: BP 124/63
[2021-03-20 12:00] VITALS: BP 118/60
[2021-03-20 16:00] VITALS: BP 120/65
[2021-03-20 20:00] VITALS: BP 107/63
[2021-03-21] VITALS: BP 112/70
[2021-03-21 08:00] VITALS: BP 118/65
[2021-03-21 12:00] VITALS: BP 118/70
[2021-03-21 16:00] VITALS: BP 109/66
[2021-03-21 20:00] VITALS: BP 119/71
[2021-03-22] VITALS: BP 106/64
[2021-03-22 08:00] VITALS: BP 114/60
[2021-03-22 12:00] VITALS: BP 135/76
[2021-03-22 16:00] VITALS: BP 112/63
[2021-03-22 16:49] LABS: CSF RBC < 1000 /uL; CSF WBC 1 /uL
[2021-03-22 16:53] LABS: CSF GLUCOSE 100 mg/dL (40-70); CSF TOTAL PROTEIN 69.2 mg/dL (15-45)
[2021-03-22 17:54] LABS: CSF LYMPHOCYTES 69 % (40-80); CSF MONOCYTES 25 % (15-45)
[2021-03-22 17:57] LABS: CLARITY CLEAR; COLOR COLORLESS
[2021-03-22 20:00] VITALS: BP 113/54
[2021-03-23] VITALS: BP 121/59
[2021-03-23 05:34] LABS: CREATININE 1.21 mg/dL (0.55-1.02); POTASSIUM 3.4 mmol/L (3.5-5.1)
[2021-03-23 05:40] LABS: THYROID STIM HORMONE (HS) 2.16 uIU/ml (0.358-4.75)
[2021-03-23 05:51] LABS: BASO % 0.4 % (0.0-1.0); EOS # 0.4 10*3/uL (0.0-0.4); EOS % 4.7 % (1.0-4.0); HEMATOCRIT 39.9 % (37.0-47.0); LYMPH # 1.8 10*3/uL (1.3-4.4); LYMPH % 22.9 % (27.0-41.0); MEAN CELL VOLUME 88.1 fl (81.0-99.0); MEAN CORPUSCULAR HGB 28.7 pg (27.0-31.0); MEAN CORPUSCULAR HGB CONC 32.6 g/dl (33.0-37.0); MEAN PLATELET VOLUME 9.9 fl (9.6-12.3); MONO # 0.8 10*3/uL (0.1-1.0); MONO % 10.2 % (3.0-9.0); NEUT # 4.9 10*3/uL (2.3-7.9); NEUT % 61.5 % (47.0-73.0); PLATELET COUNT AUTOMATED 304 10*3/uL (130-400); RED BLOOD COUNT 4.53 10*6/uL (4.10-5.10); RED CELL DISTRI WIDTH 13.2 % (0-14.5)
[2021-03-23 08:00] VITALS: BP 118/69
[2021-03-23 12:00] VITALS: BP 114/68
[2021-03-23 12:07] LABS: ACID FAST SPEC PROCESSING Direct Inoculation (.)
[2021-03-23 16:00] VITALS: BP 116/55
[2021-03-23 20:00] VITALS: BP 118/63
[2021-03-24] VITALS: BP 129/47
[2021-03-24 06:23] LABS: BUN 16 mg/dl (7-24); CHLORIDE 106 mmol/L (98-107); CREATININE 0.96 mg/dL (0.55-1.02); POTASSIUM 3.4 mmol/L (3.5-5.1); SODIUM 136 mmol/L (136-145)
[2021-03-24 08:00] VITALS: BP 142/88
[2021-03-24 12:00] VITALS: BP 118/78
[2021-03-24 15:07] LABS: CSF VDRL Non Reactive (Non Rea:<1:1)
[2021-03-24 16:22] VITALS: BP 133/74
[2021-03-24 17:06] LABS: HSV-2 DNA Negative (Negative)
[2021-03-24 20:08] VITALS: BP 130/73
[2021-03-25] VITALS: BP 128/78
[2021-03-25 05:39] LABS: ALBUMIN 3.4 gm/dl (3.1-4.5); CREATININE 1.14 mg/dL (0.55-1.02); POTASSIUM 3.7 mmol/L (3.5-5.1); TOTAL PROTEIN 7.9 gm/dL (6.4-8.2)
[2021-03-25 08:00] VITALS: BP 127/64
[2021-03-25 12:00] VITALS: BP 145/78
[2021-03-25 16:46] VITALS: BP 112/69
[2021-03-25 20:00] VITALS: BP 122/71
[2021-03-26] VITALS: BP 115/58
[2021-03-26 07:08] LABS: CREATININE 1.32 mg/dL (0.55-1.02); POTASSIUM 3.1 mmol/L (3.5-5.1)
[2021-03-26 08:00] VITALS: BP 132/67
[2021-03-26 12:00] VITALS: BP 136/65
[2021-03-26 16:00] VITALS: BP 128/68
[2021-03-26 20:00] VITALS: BP 127/67
[2021-03-27] VITALS: BP 128/65
[2021-03-27 05:56] LABS: ALBUMIN 2.9 gm/dl (3.1-4.5); CREATININE 1.16 mg/dL (0.55-1.02); POTASSIUM 2.9 mmol/L (3.5-5.1); TOTAL PROTEIN 6.7 gm/dL (6.4-8.2)
[2021-03-27 05:57] LABS: HEMATOCRIT 38.3 % (37.0-47.0); MEAN CELL VOLUME 87.4 fl (81.0-99.0); MEAN CORPUSCULAR HGB CONC 33.2 g/dl (33.0-37.0); MEAN PLATELET VOLUME 9.9 fl (9.6-12.3); PLATELET COUNT AUTOMATED 339 10*3/uL (130-400); RED BLOOD COUNT 4.38 10*6/uL (4.10-5.10); RED CELL DISTRI WIDTH 13.2 % (0-14.5); WHITE BLOOD COUNT 14.9 10*3/uL (4.8-10.8)
[2021-03-27 07:02] LABS: PLATELET SUFFICIENCY NORMAL (NORMAL); TOTAL CELLS COUNTED 100 #CELLS
[2021-03-27 08:00] VITALS: BP 156/82
[2021-03-27] MEDS ORDERED: MECLIZINE HCL25 M2 PO (10:23)
[2021-03-27] MEDS ORDERED: KEPPRA500 MG PO (10:23)
[2021-03-27] MEDS ORDERED: Humalog SQ (10:23)
[2021-03-27] MEDS ORDERED: HYDR25T PO (10:25)
[2021-03-27] MEDS ORDERED: NEURONTIN300 MG PO (12:12)
== END 2021-03-27 13:30 | DRG 59 ==
LOC: ED 06:53 → EDHOLD 11:55 → 4E 11:55
PROVIDERS: Emergency Medicine; Registered Nurse; Student in an Organized Health Care Education/Training Program; ADMIT Family Medicine; ATTEND Family Medicine
PROC: 009U3ZZ Drainage of Spinal Canal, Percutaneous Approach (ICD-10-PCS; principal; 2021-03-22)
DX: G35 Multiple sclerosis (principal); E87.2 Acidosis; E44.0 Moderate protein-calorie malnutrition; F33.2 Major depressive disorder, recurrent severe without psychotic features; Z20.822 Contact with and (suspected) exposure to COVID-19; J45.909 Unspecified asthma, uncomplicated; I12.9 Hypertensive chronic kidney disease with stage 1 through stage 4 chronic kidney disease, or unspecified chronic kidney disease; N18.30 Chronic kidney disease, stage 3 unspecified; G43.909 Migraine, unspecified, not intractable, without status migrainosus; R82.71 Bacteriuria; I25.118 Atherosclerotic heart disease of native coronary artery with other forms of angina pectoris; R73.9 Hyperglycemia, unspecified; R26.89 Other abnormalities of gait and mobility; M19.90 Unspecified osteoarthritis, unspecified site; W19.XXXA Unspecified fall, initial encounter; Y93.89 Activity, other specified; Y92.89 Other specified places as the place of occurrence of the external cause; F41.9 Anxiety disorder, unspecified; I69.398 Other sequelae of cerebral infarction; E66.9 Obesity, unspecified; Y99.8 Other external cause status; Z68.32 Body mass index [BMI] 32.0-32.9, adult; Z88.0 Allergy status to penicillin; Z88.1 Allergy status to other antibiotic agents; Z88.8 Allergy status to other drugs, medicaments and biological substances; Z88.5 Allergy status to narcotic agent; Z79.51 Long term (current) use of inhaled steroids; Z79.899 Other long term (current) drug therapy; Z79.82 Long term (current) use of aspirin

== ENCOUNTER 2021-03-29 18:52 | Emergency (ER) | payer MEDICARE ==
[~2021-03-29] VITALS: Wt 83.5 kg
[~2021-03-29 18:52] MED LIST changes: +CELEXA20 MG PO; +CYMBALTA30 MG PO; +GABAPENTIN100 M2 PO; +Humalog SQ; +KEPPRA500 MG PO; +Meclizine25 MG PO; +NEURONTIN300 MG PO; +PROAIR HFA8.5 GM INH
[2021-03-29 19:51] LABS: BASO % 0.2 % (0.0-1.0); EOS # 0.2 10*3/uL (0.0-0.4); EOS % 1.4 % (1.0-4.0); HEMATOCRIT 41.9 % (37.0-47.0); LYMPH # 2.2 10*3/uL (1.3-4.4); LYMPH % 20.3 % (27.0-41.0); MEAN CELL VOLUME 84.8 fl (81.0-99.0); MEAN CORPUSCULAR HGB 28.9 pg (27.0-31.0); MEAN CORPUSCULAR HGB CONC 34.1 g/dl (33.0-37.0); MEAN PLATELET VOLUME 9.8 fl (9.6-12.3); MONO # 0.9 10*3/uL (0.1-1.0); MONO % 7.8 % (3.0-9.0); NEUT # 7.6 10*3/uL (2.3-7.9); NEUT % 69.6 % (47.0-73.0); PLATELET COUNT AUTOMATED 308 10*3/uL (130-400); RED BLOOD COUNT 4.94 10*6/uL (4.10-5.10); RED CELL DISTRI WIDTH 12.9 % (0-14.5)
[2021-03-29 20:09] LABS: ALBUMIN 2.8 gm/dl (3.1-4.5); ALKALINE PHOSPHATASE 73 U/L (45-117); BUN 20 mg/dl (7-24); CHLORIDE 102 mmol/L (98-107); CREATININE 1.15 mg/dL (0.55-1.02); POTASSIUM 2.9 mmol/L (3.5-5.1); SGOT/AST 10 IU/L (3-35); SGPT/ALT 22 U/L (12-78); SODIUM 137 mmol/L (136-145); TOTAL PROTEIN 6.5 gm/dL (6.4-8.2)
[2021-03-29 20:11] LABS: TROPONIN I < 0.015 ng/ml (<0.045)
[2021-03-30] MEDS ORDERED: K-TAB20 MEQ PO (00:36)
== END 2021-03-30 00:58 ==
LOC: ED 18:52
PROVIDERS: Physician Assistant
DX: E87.6 Hypokalemia (principal); Z88.8 Allergy status to other drugs, medicaments and biological substances; Z88.0 Allergy status to penicillin; Z88.6 Allergy status to analgesic agent; Z79.899 Other long term (current) drug therapy; Z79.82 Long term (current) use of aspirin; Z90.49 Acquired absence of other specified parts of digestive tract; Z98.890 Other specified postprocedural states; Z95.818 Presence of other cardiac implants and grafts

== ENCOUNTER 2021-03-30 10:03 | Emergency (ER) | payer MEDICARE ==
[~2021-03-30] VITALS: Ht 172.7 cm; Wt 126.1 kg
[~2021-03-30 10:03] MED LIST changes: +K-TAB20 MEQ PO
[2021-03-30 11:43] LABS: BASO % 0.1 % (0.0-1.0); EOS # 0.2 10*3/uL (0.0-0.4); EOS % 1.6 % (1.0-4.0); HEMATOCRIT 42.4 % (37.0-47.0); LYMPH # 1.8 10*3/uL (1.3-4.4); LYMPH % 12.5 % (27.0-41.0); MEAN CELL VOLUME 84.3 fl (81.0-99.0); MEAN CORPUSCULAR HGB 28.8 pg (27.0-31.0); MEAN CORPUSCULAR HGB CONC 34.2 g/dl (33.0-37.0); MONO # 0.9 10*3/uL (0.1-1.0); MONO % 5.9 % (3.0-9.0); NEUT # 11.6 10*3/uL (2.3-7.9); NEUT % 79.4 % (47.0-73.0); PLATELET COUNT AUTOMATED 305 10*3/uL (130-400); RED BLOOD COUNT 5.03 10*6/uL (4.10-5.10); RED CELL DISTRI WIDTH 12.9 % (0-14.5); WHITE BLOOD COUNT 14.7 10*3/uL (4.8-10.8)
[2021-03-30 11:53] LABS: ACT PARTIAL THROMBO TIME 23.6 SECONDS (20.0-32.1)
[2021-03-30 11:59] LABS: ALKALINE PHOSPHATASE 73 U/L (45-117); BUN 19 mg/dl (7-24); CHLORIDE 100 mmol/L (98-107); CREATININE 1.04 mg/dL (0.55-1.02); LIPASE 150 U/L (73-393); POTASSIUM 2.6 mmol/L (3.5-5.1); SGOT/AST 13 IU/L (3-35); SGPT/ALT 23 U/L (12-78); SODIUM 136 mmol/L (136-145); TOTAL PROTEIN 6.9 gm/dL (6.4-8.2); TROPONIN I < 0.015 ng/ml (<0.045)
[2021-03-30 12:19] LABS: BILIRUBIN Negative (Negative); BLOOD Negative (Negative); CLARITY Clear (Clear); COLOR Yellow (Yellow); GLUCOSE Negative (Negative); KETONE Trace (Negative); LEUKO ESTERASE Negative (Negative); NITRITE Negative (Negative); SPECIFIC GRAVITY 1.015 (1.001-1.030)
[2021-03-30 12:31] LABS: RBC 0-2 rbc/hpf (0-2); WBC 0-2 wbc/hpf (0-5)
== END 2021-03-30 15:53 ==
LOC: ED 10:03
PROVIDERS: Emergency Medicine
DX: R42 Dizziness and giddiness (principal); E87.6 Hypokalemia; Z79.899 Other long term (current) drug therapy; Z88.8 Allergy status to other drugs, medicaments and biological substances; Z88.6 Allergy status to analgesic agent; Z88.0 Allergy status to penicillin; Z79.82 Long term (current) use of aspirin; Z79.84 Long term (current) use of oral hypoglycemic drugs; Z98.51 Tubal ligation status; Z95.818 Presence of other cardiac implants and grafts; W19.XXXA Unspecified fall, initial encounter; Y93.89 Activity, other specified; Y92.89 Other specified places as the place of occurrence of the external cause; Y99.8 Other external cause status

== ENCOUNTER 2021-04-04 21:15 | Emergency (ER) | payer MEDICARE ==
[~2021-04-04] VITALS: Wt 84.1 kg
[2021-04-04 23:29] LABS: BASO % 0.1 % (0.0-1.0); EOS # 0.3 10*3/uL (0.0-0.4); EOS % 2.4 % (1.0-4.0); HEMATOCRIT 40.2 % (37.0-47.0); LYMPH # 2.3 10*3/uL (1.3-4.4); LYMPH % 16.3 % (27.0-41.0); MEAN CELL VOLUME 86.5 fl (81.0-99.0); MEAN CORPUSCULAR HGB 29.2 pg (27.0-31.0); MEAN CORPUSCULAR HGB CONC 33.8 g/dl (33.0-37.0); MEAN PLATELET VOLUME 9.9 fl (9.6-12.3); MONO # 1.2 10*3/uL (0.1-1.0); MONO % 8.7 % (3.0-9.0); NEUT # 10.1 10*3/uL (2.3-7.9); PLATELET COUNT AUTOMATED 335 10*3/uL (130-400); RED BLOOD COUNT 4.65 10*6/uL (4.10-5.10); RED CELL DISTRI WIDTH 12.9 % (0-14.5); WHITE BLOOD COUNT 14.1 10*3/uL (4.8-10.8)
[2021-04-04 23:45] LABS: ALBUMIN 2.9 gm/dl (3.1-4.5); ALKALINE PHOSPHATASE 83 U/L (45-117); BUN 16 mg/dl (7-24); CHLORIDE 106 mmol/L (98-107); CREATININE 0.93 mg/dL (0.55-1.02); POTASSIUM 3.3 mmol/L (3.5-5.1); SGOT/AST 23 IU/L (3-35); SGPT/ALT 48 U/L (12-78); SODIUM 137 mmol/L (136-145); TOTAL PROTEIN 6.6 gm/dL (6.4-8.2)
[2021-04-04 23:55] LABS: BILIRUBIN Negative (Negative); BLOOD Negative (Negative); CLARITY Cloudy (Clear); COLOR Yellow (Yellow); GLUCOSE 1+ (Negative); KETONE Trace (Negative); LEUKO ESTERASE Negative (Negative); NITRITE Negative (Negative); SPECIFIC GRAVITY 1.015 (1.001-1.030)
[2021-04-05 00:13] LABS: BACTERIA 4+; RBC 0-2 rbc/hpf (0-2); WBC 0-2 wbc/hpf (0-5)
== END 2021-04-05 01:30 ==
LOC: ED 21:15
PROVIDERS: Internal Medicine
DX: E88.09 Other disorders of plasma-protein metabolism, not elsewhere classified (principal); D72.829 Elevated white blood cell count, unspecified; R82.71 Bacteriuria; R53.1 Weakness; Z91.048 Other nonmedicinal substance allergy status; Z88.6 Allergy status to analgesic agent; Z88.8 Allergy status to other drugs, medicaments and biological substances; Z88.1 Allergy status to other antibiotic agents; Z88.4 Allergy status to anesthetic agent; Z88.0 Allergy status to penicillin; Z79.899 Other long term (current) drug therapy; Z79.82 Long term (current) use of aspirin; Z98.890 Other specified postprocedural states; Z98.51 Tubal ligation status; Z95.5 Presence of coronary angioplasty implant and graft